=== PATIENT | female | born 1990 | race African-American/Black ===

== ENCOUNTER 2022-08-12 09:21 | Day surgery (SDC) | payer MEDICAID ==
[~2022-08-12] VITALS: Ht 162.6 cm; Wt 134.3 kg
[2022-08-12] MEDS ORDERED: fentaNYL citrate 0.05 MG/ML VIAL ONE (10:36)
[2022-08-12] MEDS ORDERED: MIDAZOLAM 2 MG/2 ML VIAL ONE (10:37)
[2022-08-12] MEDS ORDERED: MIDAZOLAM 2 MG/2 ML VIAL IVP ONE (11:20)
== END 2022-08-12 12:25 | disposition home or self-care (01) ==
LOC: MDS 09:21 → MMU 09:28 → MDS 12:25
PROVIDERS: ATTEND Internal Medicine Gastroenterology
DX: E66.01 Morbid (severe) obesity due to excess calories (principal); F41.9 Anxiety disorder, unspecified; F32.A Depression, unspecified; Z98.890 Other specified postprocedural states; Z80.3 Family history of malignant neoplasm of breast; Z98.84 Bariatric surgery status; Z68.43 Body mass index [BMI] 50.0-59.9, adult; Z79.899 Other long term (current) drug therapy
CPT/HCPCS: 36415; 43239; 86677; J2250; J3010